=== PATIENT | female | born 1965 | race American Indian/Alaskan Native ===

== ENCOUNTER 2019-05-05 08:38 | Outpatient (CLI) | payer BC ==
--- NOTE | 2019-05-05 10:02 | Ultrasound Report ---
ULTRASOUND ABDOMEN, COMPLETE INDICATION: LEFT LOWER QUADRANT PAIN R10.32. COMPARISON: No relevant prior imaging study available. FINDINGS: Pancreas: No significant abnormality. Abdominal Aorta: No significant abnormality. IVC: No significant abnormality. Liver: The liver measures 14 cm in length. No significant abnormality. Normal hepatopedal blood flow in the main portal vein. Gallbladder: No significant abnormality. Bile ducts: No significant abnormality. Common bile duct measures 5 mm. Kidneys: Right: 9.4 cm in length. No significant abnormality. Left: 9.0 cm in length. No signific ant abnormality. Spleen: No significant abnormality. Free fluid: None. Additional Findings: None. IMPRESSION: 1. No sonographic abnormality of the abdomen. Signer Name: Juan Kramer Jr, MD Signed: 05/05/2019 9:57 AM Workstation Name: [id number]
== END 2019-05-05 08:39 | disposition home or self-care (01) ==
LOC: SPVWC 08:38
PROVIDERS: ATTEND Family Medicine Adult Medicine
DX: R10.32 Left lower quadrant pain (principal)
CPT/HCPCS: 76700